=== PATIENT | male | born 1955 | race Caucasian/White ===

== ENCOUNTER 2023-04-06 06:04 | Observation (INO) ==
[2023-04-06] MEDS ORDERED: IOPAMIDOL 100 ML BOTTLE IV ONE (06:05)
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
--- NOTE | 2023-04-06 06:40 | Cat Scan Report ---
INDICATION: Neuro Deficit/acute stroke. History of multiple sclerosis COMPARISON: Previous MRI scans dated 05/16/2021, 01/06/2020, 01/10/2018. Previous brain CT scan dated 03/13/2015 TECHNIQUE: Axial noncontrast-enhanced images through the brain. Sagittally and coronally reformatted images. FINDINGS: Cerebral hemispheres:Negative. No intra-axial abnormality. No intra-axial hematoma. No localized mass effect. There is cerebral atrophy with enlarged ventricles. Cyst is unchanged. Superficial subarachnoid spaces are mildly prominent No acute focal intra-axial abnormality. No localized mass effect. Brainstem and cerebellum:There is cerebellar atrophy. No intra-axial abnormality. Brainstem is negative Extra-axial:No acute hemorrhage. No subdural or epidural hematoma. No subarachnoid hemorrhage. Basilar cisterns are normal Calvarial:No calvarial fracture. No lytic lesion Temporal bones are negative. No destructive lesions Soft tissue, orbits, sinuses:Orbits and visualized facial soft tissues and paranasal sinuses are negative IMPRESSION: 1. Cerebral and cerebellar atrophy 2. No acute abnormality. No intracranial hemorrhage The exam was performed using radiation dose optimization techniques including, but not limited to, automated exposure control, adjustment of the mA and/or kV according to patient size and use of iterative reconstruction technique. Interpreted and Authenticated by: Isaias Mohamud 04/06/23
[2023-04-06 06:47] LABS: POC INR 1.2 (0.8-1.2); POC Pro Time 13.9 (11.9-14.5)
[2023-04-06 06:50] LABS: POC Calcium, Ionized 1.01 (1.16-1.32); POC Creatinine 1.1 (0.6-1.2); POC Potassium 3.4 (3.3-5.1)
--- NOTE | 2023-04-06 07:31 | Cat Scan Report ---
INDICATION: FALL COMPARISON: None. TECHNIQUE: Axial thin section images through the cervical spine. Sagittally and coronally reformatted images. The exam was performed using radiation dose optimization techniques including, but not limited to, automated exposure control, adjustment of the mA and/or kV according to patient size and use of iterative reconstruction technique. FINDINGS: There is ossification of the posterior longitudinal ligament (OPLL). This is segmental at the C2-3 and C4-5 levels. No pathologic fracture. No pseudoarthrosis. No significant spinal canal stenosis Vertebral bodies, spinous processes:No vertebral body or spinous process fracture. No acute abnormality. Alignment is anatomic without anterolisthesis Normal odontoid process. No fracture. Occipital condyles and C1 are negative. No atlantoaxial subluxation. Facets:No perched or locked facet. No facet complex fracture. Disc spaces:Ossification of the posterior longitudinal ligament at the C2-3 level and C4-5 level. Appearance is consistent with segmental OPLL. There is severe degenerative disc disease at C4-5. Mild degenerative disc narrowing at C5-6 Temporal bones:Negative. No basilar skull fracture Cervical soft tissues:Negative. No prevertebral soft tissue swelling. No focal soft tissue mass or acute abnormality Lung apices:No pneumothorax. No pulmonary contusion. IMPRESSION: 1. Segmental ossification of the posterior longitudinal ligament (OPLL) 2. Degenerative disc disease at C4-5 and C5-6 3. No acute abnormality Interpreted and Authenticated by: Isaias Mohamud 04/06/23
[2023-04-06 07:52] LABS: Basophils # (Auto) 0.06 K/mcL (0.00-0.30); Basophils % (Auto) 0.6 % (0.0-2.0); Eosinophils # (Auto) 0.01 K/mcL (0.00-0.70); Eosinophils % (Auto) 0.1 % (0.0-7.0); Hematocrit 44.1 % (40.1-51.0); Hemoglobin 15.1 g/dL (13.7-17.5); Lymphocytes % (Auto) 4.6 % (15.5-49.0); Mean Cell Volume 83.1 fL (80.0-100.0); Mean Corpuscular HGB Conc 34.2 g/dL (31.0-36.0); Mean Platelet Volume 10.3 fL (8.8-12.5); Monocytes # (Auto) 0.46 K/mcL (0.10-0.90); Monocytes % (Auto) 4.2 % (1.0-12.0); Neutrophils % (Auto) 89.9 % (38.0-78.0); Platelet Count 161 K/mcL (140-440); RBC 5.31 M/mcL (4.63-6.08); Red Cell Distribution Width 13.4 % (11.5-14.5); WBC 10.9 K/mcL (4.5-11.0)
[2023-04-06 08:09] LABS: ALT/SGPT 29 U/L (<40); AST/SGOT 22 U/L (<40); Albumin 4.2 gm/dL (3.2-5.2); Albumin/Globulin Ratio 1.6 (1.0-2.3); Alkaline Phosphatase 66 U/L (39-117); Bilirubin,Direct < 0.2 mg/dL (0-0.3); Bilirubin,Total 0.9 mg/dL (0.1-1.0); Blood Urea Nitrogen 15 mg/dL (8-23); Calcium 9.1 mg/dL (8.6-10.4); Carbon Dioxide 20 mmol/L (22-30); Chloride 101 mmol/L (96-108); Globulin 2.7 gm/dL (2.2-3.7); Glomerular Filtration Rate 70; Glucose 124 mg/dL (70-105)
--- NOTE | 2023-04-06 08:35 | Emergency Department Note ---
Course Course Course Narrative: Patient is a 67-year-old male with a history significant for multiple sclerosis who presents to the emergency department due to a fall. Patient was signed out to me by Dr. Shelton. Briefly, it was reported that there was some concern for possibility of stroke by EMS, but Dr. Shelton reports that patient is at his neurologic baseline. Labs and images were pending at the time of signout. I spoke to the patient and significant other in the room. They endorse a fall around 230 to 3 AM. He attempted to get up, but was unable to. He was on the ground until transfer to the emergency department by EMS. She states that EMS was concerned about stroke because he was listing to the right. She does endorse increased weakness throughout compared to normal. She states that patient does not usually require oxygen but is requiring oxygen now. She also endorses recent vomiting. They deny any other new or worsened symptoms. Vital Signs Vital signs: Vital Signs Temperature 97.4 F 04/06/23 06:09 Pulse Rate 127 H 04/06/23 06:09 Respiratory Rate 24 H 04/06/23 06:09 Blood Pressure 111/57 04/06/23 06:09 Pulse Oximetry (%) 88 L 04/06/23 06:09 Oxygen Delivery Method Room Air 04/06/23 06:09 Temperature 98.0 F 04/06/23 14:56 Pulse Rate 88 04/06/23 15:12 Respiratory Rate 20 04/06/23 15:12 Blood Pressure 109/64 04/06/23 15:12 Pulse Oximetry (%) 93 04/06/23 15:12 Oxygen Delivery Method Room Air 04/06/23 15:12 Oxygen Flow Rate (L/min) 3 04/06/23 08:34 [facility] Narrative Medical decision making narrative: Narrative: Patient is a 67-year-old male who presents to the emergency department due to fall and weakness. Differential diagnoses include pneumonia, heart failure, pulmonary embolus, UTI, and other infection that is not apparent at this time. Patient's chest x-ray demonstrates concern for pneumonia. Patient has received ceftriaxone and azithromycin. D-dimer is elevated. CT scan does not demonstrate findings consistent with pneumonia or pulmonary embolus. There are interstitial findings that could be consistent with CHF. Patient does have a mildly elevated proBNP. Patient's symptoms improved significantly with fluids prior to results of this BNP. I did speak with Dr. Bosch who asked that we give Lasix and try to wean oxygen prior to admission. Patient received Lasix, and stated that he did not feel any improvement in symptoms with Lasix, but did feel improvement with the fluids given via IV. We were able to wean oxygen, but patient continues to have saturations in the low 90s. We did attempt to walk patient, but he was unable to get up at all. I did speak with Dr. Bosch again, and he did agree with admitting patient. Lab Data 04/06/23 06:30 04/06/23 06:42 Labs: Lab Results 04/06/23 04/06/23 04/06/23 Range/Units 06:30 06:30 06:34 WBC 10.9 (4.5-11.0) K/mcL RBC 5.31 (4.63-6.08) M/mcL Hgb 15.1 (13.7-17.5) g/dL Hct 44.1 (40.1-51.0) % POC Hct 46.0 (41-55) MCV 83.1 (80.0-100.0) fL MCH 28.4 (26.0-34.0) pg MCHC 34.2 (31.0-36.0) g/dL RDW 13.4 (11.5-14.5) % Plt Count 161 (140-440) K/mcL MPV 10.3 (8.8-12.5) fL Immature Gran % (Auto) 0.6 H (0.0-0.5) % Neut % (Auto) 89.9 H (38.0-78.0) % Lymph % (Auto) 4.6 L (15.5-49.0) % Brooks % (Auto) 4.2 (1.0-12.0) % Eos % (Auto) 0.1 (0.0-7.0) % Baso % (Auto) 0.6 (0.0-2.0) % Lymph # (Auto) 0.50 L (1.50-4.80) K/mcL Brooks # (Auto) 0.46 (0.10-0.90) K/mcL Eos # (Auto) 0.01 (0.00-0.70) K/mcL Baso # (Auto) 0.06 (0.00-0.30) K/mcL Immature Gran # 0.06 H (0.00-0.05) K/mcl Absolute Neutrophils 9.81 H (1.80-8.00) K/mcL POC PT (11.9-14.5) POC INR (0.8-1.2) APTT 30.7 (20.0-37.0) sec D-Dimer (0.27-0.50) ug/mL POC VBG pH (7.32-7.42) POC VBG pCO2 at Temp (41-51) POC VBG pO2 (25-40) POC VBG HCO3 (24-28) POC VBG Total CO2 (25-29) POC Venous O2 Sat (40-70) POC VBG Base Excess (-2-2) VBG Lactic Acid (0.5-2) POC Sodium 140 (133-145) Sodium (133-145) mmol/L POC Potassium 3.4 (3.3-5.1) Potassium (3.3-5.1) mmol/L POC Chloride 103 (96-108) Chloride (96-108) mmol/L Carbon Dioxide (22-30) mmol/L POC Total CO2 23.0 (22-30) Anion Gap (8.0-16.0) POC Anion Gap 18.0 H (8.0-16.0) POC BUN 20 (6-20) BUN (8-23) mg/dL Creatinine (0.7-1.2) mg/dL POC Creatinine 1.1 (0.6-1.2) GFR Calculation Glucose (70-105) mg/dL POC Glucose 132 H (70-105) Calcium (8.6-10.4) mg/dL POC WB Ioniz Calcium 1.01 L (1.16-1.32) Total Bilirubin (0.1-1.0) mg/dL Direct Bilirubin (0-0.3) mg/dL AST (<40) U/L ALT (<40) U/L Alkaline Phosphatase (39-117) U/L Total Creatine Kinase (24-195) U/L NT-Pro-B Natriuret Pep (<125.0) pg/mL Total Protein (5.9-8.4) gm/dL Albumin (3.2-5.2) gm/dL Globulin (2.2-3.7) gm/dL Albumin/Globulin Ratio (1.0-2.3) Procalcitonin (<0.10) ng/mL Urine Color Urine Appearance (Clear) Urine pH (5.0-9.0) Ur Specific [place] (1.000-1.035) Urine Protein (Negative) mg/dL Urine Glucose (UA) (Negative) mg/dL Urine Ketones (Negative) mg/dL Urine Occult Blood (Negative) mg/dL Urine Nitrate (Negative) Urine Bilirubin (Negative) mg/dL Urine Urobilinogen mg/dL Ur Leukocyte Esterase (Negative) /uL Ur Culture Indicated? POC Troponin I (0.00-0.08) 04/06/23 04/06/23 04/06/23 Range/Units 06:35 06:38 06:42 WBC (4.5-11.0) K/mcL RBC (4.63-6.08) M/mcL Hgb (13.7-17.5) g/dL Hct (40.1-51.0) % POC Hct (41-55) MCV (80.0-100.0) fL MCH (26.0-34.0) pg MCHC (31.0-36.0) g/dL RDW (11.5-14.5) % Plt Count (140-440) K/mcL MPV (8.8-12.5) fL Immature Gran % (Auto) (0.0-0.5) % Neut % (Auto) (38.0-78.0) % Lymph % (Auto) (15.5-49.0) % Brooks % (Auto) (1.0-12.0) % Eos % (Auto) (0.0-7.0) % Baso % (Auto) (0.0-2.0) % Lymph # (Auto) (1.50-4.80) K/mcL Brooks # (Auto) (0.10-0.90) K/mcL Eos # (Auto) (0.00-0.70) K/mcL Baso # (Auto) (0.00-0.30) K/mcL Immature Gran # (0.00-0.05) K/mcl Absolute Neutrophils (1.80-8.00) K/mcL POC PT (11.9-14.5) POC INR (0.8-1.2) APTT (20.0-37.0) sec D-Dimer (0.27-0.50) ug/mL POC VBG pH 7.46 H (7.32-7.42) POC VBG pCO2 at Temp 33.4 L (41-51) POC VBG pO2 55 H (25-40) POC VBG HCO3 23.6 L (24-28) POC VBG Total CO2 25.0 (25-29) POC Venous O2 Sat 90.0 H (40-70) POC VBG Base Excess 0 (-2-2) VBG Lactic Acid 3.1 H (0.5-2) POC Sodium (133-145) Sodium 137 (133-145) mmol/L POC Potassium (3.3-5.1) Potassium 3.6 (3.3-5.1) mmol/L POC Chloride (96-108) Chloride 101 (96-108) mmol/L Carbon Dioxide 20 L (22-30) mmol/L POC Total CO2 (22-30) Anion Gap 16.0 (8.0-16.0) POC Anion Gap (8.0-16.0) POC BUN (6-20) BUN 15 (8-23) mg/dL Creatinine 1.1 (0.7-1.2) mg/dL POC Creatinine (0.6-1.2) GFR Calculation 70 Glucose 124 H (70-105) mg/dL POC Glucose (70-105) Calcium 9.1 (8.6-10.4) mg/dL POC WB Ioniz Calcium (1.16-1.32) Total Bilirubin 0.9 (0.1-1.0) mg/dL Direct Bilirubin < 0.2 (0-0.3) mg/dL AST 22 (<40) U/L ALT 29 (<40) U/L Alkaline Phosphatase 66 (39-117) U/L Total Creatine Kinase (24-195) U/L NT-Pro-B Natriuret Pep (<125.0) pg/mL Total Protein 6.9 (5.9-8.4) gm/dL Albumin 4.2 (3.2-5.2) gm/dL Globulin 2.7 (2.2-3.7) gm/dL Albumin/Globulin Ratio 1.6 (1.0-2.3) Procalcitonin (<0.10) ng/mL Urine Color Urine Appearance (Clear) Urine pH (5.0-9.0) Ur Specific [place] (1.000-1.035) Urine Protein (Negative) mg/dL Urine Glucose (UA) (Negative) mg/dL Urine Ketones (Negative) mg/dL Urine Occult Blood (Negative) mg/dL Urine Nitrate (Negative) Urine Bilirubin (Negative) mg/dL Urine Urobilinogen mg/dL Ur Leukocyte Esterase (Negative) /uL Ur Culture Indicated? POC Troponin I < 0.02 (0.00-0.08) 04/06/23 04/06/23 04/06/23 Range/Units 06:42 08:50 08:51 WBC (4.5-11.0) K/mcL RBC (4.63-6.08) M/mcL Hgb (13.7-17.5) g/dL Hct (40.1-51.0) % POC Hct (41-55) MCV (80.0-100.0) fL MCH (26.0-34.0) pg MCHC (31.0-36.0) g/dL RDW (11.5-14.5) % Plt Count (140-440) K/mcL MPV (8.8-12.5) fL Immature Gran % (Auto) (0.0-0.5) % Neut % (Auto) (38.0-78.0) % Lymph % (Auto) (15.5-49.0) % Brooks % (Auto) (1.0-12.0) % Eos % (Auto) (0.0-7.0) % Baso % (Auto) (0.0-2.0) % Lymph # (Auto) (1.50-4.80) K/mcL Brooks # (Auto) (0.10-0.90) K/mcL Eos # (Auto) (0.00-0.70) K/mcL Baso # (Auto) (0.00-0.30) K/mcL Immature Gran # (0.00-0.05) K/mcl Absolute Neutrophils (1.80-8.00) K/mcL POC PT 13.9 (11.9-14.5) POC INR 1.2 (0.8-1.2) APTT (20.0-37.0) sec D-Dimer 1.77 H (0.27-0.50) ug/mL POC VBG pH (7.32-7.42) POC VBG pCO2 at Temp (41-51) POC VBG pO2 (25-40) POC VBG HCO3 (24-28) POC VBG Total CO2 (25-29) POC Venous O2 Sat (40-70) POC VBG Base Excess (-2-2) VBG Lactic Acid (0.5-2) POC Sodium (133-145) Sodium (133-145) mmol/L POC Potassium (3.3-5.1) Potassium (3.3-5.1) mmol/L POC Chloride (96-108) Chloride (96-108) mmol/L Carbon Dioxide (22-30) mmol/L POC Total CO2 (22-30) Anion Gap (8.0-16.0) POC Anion Gap (8.0-16.0) POC BUN (6-20) BUN (8-23) mg/dL Creatinine (0.7-1.2) mg/dL POC Creatinine (0.6-1.2) GFR Calculation Glucose (70-105) mg/dL POC Glucose (70-105) Calcium (8.6-10.4) mg/dL POC WB Ioniz Calcium (1.16-1.32) Total Bilirubin (0.1-1.0) mg/dL Direct Bilirubin (0-0.3) mg/dL AST (<40) U/L ALT (<40) U/L Alkaline Phosphatase (39-117) U/L Total Creatine Kinase 646 H (24-195) U/L NT-Pro-B Natriuret Pep 419.6 H (<125.0) pg/mL Total Protein (5.9-8.4) gm/dL Albumin (3.2-5.2) gm/dL Globulin (2.2-3.7) gm/dL Albumin/Globulin Ratio (1.0-2.3) Procalcitonin (<0.10) ng/mL Urine Color Urine Appearance (Clear) Urine pH (5.0-9.0) Ur Specific [place] (1.000-1.035) Urine Protein (Negative) mg/dL Urine Glucose (UA) (Negative) mg/dL Urine Ketones (Negative) mg/dL Urine Occult Blood (Negative) mg/dL Urine Nitrate (Negative) Urine Bilirubin (Negative) mg/dL Urine Urobilinogen mg/dL Ur Leukocyte Esterase (Negative) /uL Ur Culture Indicated? POC Troponin I (0.00-0.08) 04/06/23 04/06/23 04/06/23 Range/Units 08:52 08:52 09:51 WBC (4.5-11.0) K/mcL RBC (4.63-6.08) M/mcL Hgb (13.7-17.5) g/dL Hct (40.1-51.0) % POC Hct (41-55) MCV (80.0-100.0) fL MCH (26.0-34.0) pg MCHC (31.0-36.0) g/dL RDW (11.5-14.5) % Plt Count (140-440) K/mcL MPV (8.8-12.5) fL Immature Gran % (Auto) (0.0-0.5) % Neut % (Auto) (38.0-78.0) % Lymph % (Auto) (15.5-49.0) % Brooks % (Auto) (1.0-12.0) % Eos % (Auto) (0.0-7.0) % Baso % (Auto) (0.0-2.0) % Lymph # (Auto) (1.50-4.80) K/mcL Brooks # (Auto) (0.10-0.90) K/mcL Eos # (Auto) (0.00-0.70) K/mcL Baso # (Auto) (0.00-0.30) K/mcL Immature Gran # (0.00-0.05) K/mcl Absolute Neutrophils (1.80-8.00) K/mcL POC PT (11.9-14.5) POC INR (0.8-1.2) APTT (20.0-37.0) sec D-Dimer (0.27-0.50) ug/mL POC VBG pH 7.40 (7.32-7.42) POC VBG pCO2 at Temp 38.4 L (41-51) POC VBG pO2 44 H (25-40) POC VBG HCO3 24.0 (24-28) POC VBG Total CO2 25.0 (25-29) POC Venous O2 Sat 80.0 H (40-70) POC VBG Base Excess -1.0 (-2-2) VBG Lactic Acid 2.1 H 2.1 H (0.5-2) POC Sodium (133-145) Sodium (133-145) mmol/L POC Potassium (3.3-5.1) Potassium (3.3-5.1) mmol/L POC Chloride (96-108) Chloride (96-108) mmol/L Carbon Dioxide (22-30) mmol/L POC Total CO2 (22-30) Anion Gap (8.0-16.0) POC Anion Gap (8.0-16.0) POC BUN (6-20) BUN (8-23) mg/dL Creatinine (0.7-1.2) mg/dL POC Creatinine (0.6-1.2) GFR Calculation Glucose (70-105) mg/dL POC Glucose (70-105) Calcium (8.6-10.4) mg/dL POC WB Ioniz Calcium (1.16-1.32) Total Bilirubin (0.1-1.0) mg/dL Direct Bilirubin (0-0.3) mg/dL AST (<40) U/L ALT (<40) U/L Alkaline Phosphatase (39-117) U/L Total Creatine Kinase (24-195) U/L NT-Pro-B Natriuret Pep (<125.0) pg/mL Total Protein (5.9-8.4) gm/dL Albumin (3.2-5.2) gm/dL Globulin (2.2-3.7) gm/dL Albumin/Globulin Ratio (1.0-2.3) Procalcitonin 0.87 H (<0.10) ng/mL Urine Color Urine Appearance (Clear) Urine pH (5.0-9.0) Ur Specific [place] (1.000-1.035) Urine Protein (Negative) mg/dL Urine Glucose (UA) (Negative) mg/dL Urine Ketones (Negative) mg/dL Urine Occult Blood (Negative) mg/dL Urine Nitrate (Negative) Urine Bilirubin (Negative) mg/dL Urine Urobilinogen mg/dL Ur Leukocyte Esterase (Negative) /uL Ur Culture Indicated? POC Troponin I (0.00-0.08) 04/06/23 04/06/23 Range/Units 12:04 13:00 WBC (4.5-11.0) K/mcL RBC (4.63-6.08) M/mcL Hgb (13.7-17.5) g/dL Hct (40.1-51.0) % POC Hct (41-55) MCV (80.0-100.0) fL MCH (26.0-34.0) pg MCHC (31.0-36.0) g/dL RDW (11.5-14.5) % Plt Count (140-440) K/mcL MPV (8.8-12.5) fL Immature Gran % (Auto) (0.0-0.5) % Neut % (Auto) (38.0-78.0) % Lymph % (Auto) (15.5-49.0) % Brooks % (Auto) (1.0-12.0) % Eos % (Auto) (0.0-7.0) % Baso % (Auto) (0.0-2.0) % Lymph # (Auto) (1.50-4.80) K/mcL Brooks # (Auto) (0.10-0.90) K/mcL Eos # (Auto) (0.00-0.70) K/mcL Baso # (Auto) (0.00-0.30) K/mcL Immature Gran # (0.00-0.05) K/mcl Absolute Neutrophils (1.80-8.00) K/mcL POC PT (11.9-14.5) POC INR (0.8-1.2) APTT (20.0-37.0) sec D-Dimer (0.27-0.50) ug/mL POC VBG pH (7.32-7.42) POC VBG pCO2 at Temp (41-51) POC VBG pO2 (25-40) POC VBG HCO3 (24-28) POC VBG Total CO2 (25-29) POC Venous O2 Sat (40-70) POC VBG Base Excess (-2-2) VBG Lactic Acid 2.1 H (0.5-2) POC Sodium (133-145) Sodium (133-145) mmol/L POC Potassium (3.3-5.1) Potassium (3.3-5.1) mmol/L POC Chloride (96-108) Chloride (96-108) mmol/L Carbon Dioxide (22-30) mmol/L POC Total CO2 (22-30) Anion Gap (8.0-16.0) POC Anion Gap (8.0-16.0) POC BUN (6-20) BUN (8-23) mg/dL Creatinine (0.7-1.2) mg/dL POC Creatinine (0.6-1.2) GFR Calculation Glucose (70-105) mg/dL POC Glucose (70-105) Calcium (8.6-10.4) mg/dL POC WB Ioniz Calcium (1.16-1.32) Total Bilirubin (0.1-1.0) mg/dL Direct Bilirubin (0-0.3) mg/dL AST (<40) U/L ALT (<40) U/L Alkaline Phosphatase (39-117) U/L Total Creatine Kinase (24-195) U/L NT-Pro-B Natriuret Pep (<125.0) pg/mL Total Protein (5.9-8.4) gm/dL Albumin (3.2-5.2) gm/dL Globulin (2.2-3.7) gm/dL Albumin/Globulin Ratio (1.0-2.3) Procalcitonin (<0.10) ng/mL Urine Color Yellow Urine Appearance Clear (Clear) Urine pH 5.0 (5.0-9.0) Ur Specific [place] 1.028 (1.000-1.035) Urine Protein Negative (Negative) mg/dL Urine Glucose (UA) Negative (Negative) mg/dL Urine Ketones Negative (Negative) mg/dL Urine Occult Blood Negative (Negative) mg/dL Urine Nitrate Negative (Negative) Urine Bilirubin Negative (Negative) mg/dL Urine Urobilinogen Negative mg/dL Ur Leukocyte Esterase Negative (Negative) /uL Ur Culture Indicated? No POC Troponin I (0.00-0.08) Discharge Plan Patient/Caregiver Discharge Instructions Pt seen by ACCOUNT AUDITOR/PA only: No Clinical Impression: Fall from ground level, Multiple sclerosis Patient Disposition: Xfer As Inpt ([facility]) Discharge Date/Time: 04/06/23 15:15
--- NOTE | 2023-04-06 08:39 | XRay Report ---
INDICATION: SOB, tachypnea TECHNIQUE: AP portable upright chest x-ray COMPARISON: None FINDINGS: Lungs:Bilateral, bibasilar pulmonary parenchymal infiltrates consistent with pneumonia. Follow-up PA and lateral chest x-ray recommended Heart, vascular:No significant cardiomegaly. Pulmonary vascularity is normal. No pulmonary edema or pulmonary congestion Mediastinum, marcus:No mediastinal widening. No hilar mass Pleura:No pleural fluid. No pleural-based mass or calcification Skeletal:Negative. IMPRESSION: Bibasilar infiltrates consistent with pneumonia Interpreted and Authenticated by: Isaias Mohamud 04/06/23
[2023-04-06] MEDS ORDERED: AZITHROMYCIN 500 MG in DEXTROSE 5% IN WATER 250 ML IV ONE (08:51)
[2023-04-06] MEDS ORDERED: cefTRIAXone 2 GM in DEXTROSE 5% IN WATER 50 ML IV ONE (08:51)
[2023-04-06 09:43] LABS: Creatine Kinase 646 U/L (24-195); proBNP 419.6 pg/mL (<125.0)
[2023-04-06] MEDS ORDERED: 0.9 % SODIUM CHLORIDE 500 ML IV ONE (09:45)
--- NOTE | 2023-04-06 11:19 | Cat Scan Report ---
INDICATION: SOB, hypoxia, elevated D dimer COMPARISON: Previous chest x-ray dated 04/06/2023 TECHNIQUE: Axial images obtained through the chest. 80ml Isovue 370 injected intravenously, and scanning was performed during pulmonary arterial phase. Sagittally and coronally reformatted images were obtained. MIP reformatted images. FINDINGS: Lungs:No parenchymal consolidation. There is bronchial wall thickening and there is reticular abnormality. Findings may be due to interstitial edema. Bronchitis is possible. There is a 9 mm noncalcified right lower lobe nodule, image 85. Fleischner Society recommendations: [address] follow-up Mediastinum, vascular:Main pulmonary artery, right pulmonary artery, left pulmonary artery are negative. No intraluminal filling defects. No lobar, segmental, or subsegmental emboli. Thoracic aorta is negative. No aneurysmal dilatation No pathologic mediastinal or hilar adenopathy Heart:No cardiomegaly. No pericardial effusion. No significant coronary artery calcification Pleura:No significant pleural effusion. No pleural mass or calcification Axilla, supraclavicular regions, chest wall:No pathologic axillary or supraclavicular adenopathy. Musculoskeletal:Negative thoracic spine. No compression fracture. No lytic lesion. No rib or sternal lesions Upper Abdomen:There is splenomegaly. Spleen measures 16 cm x 13 cm. There are calcified gallstones. No evidence for cholecystitis IMPRESSION: 1. Negative pulmonary CTA. No pulmonary embolism 2. 9 mm noncalcified nodule in the right lower lobe. Recommend [address] follow-up 3. Mild reticular abnormality. There is thickening of the bronchial cotter. Interstitial edema or bronchitis or possible 4. Cholelithiasis 5. Mild splenomegaly The exam was performed using radiation dose optimization techniques including, but not limited to, automated exposure control, adjustment of the mA and/or kV according to patient size and use of iterative reconstruction technique. Interpreted and Authenticated by: Isaias Mohamud 04/06/23
[2023-04-06] MEDS ORDERED: FUROSEMIDE 40 MG/4 ML VIAL IV STA (11:45)
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
[2023-04-06] MEDS ORDERED: ACETAMINOPHEN 325 MG TABLET PO ONE (12:51)
[2023-04-06 13:36] LABS: Appearance,Urine CLEAR (Clear); Bilirubin,Urine Negative (Negative); Color,Urine YELLOW; Culture Indicated,Urine No; Glucose,Urine (UA) Negative (Negative); Ketones,Urine Negative (Negative); Leukocyte Esterase,Urine Negative /uL (Negative); Nitrate,Urine Negative (Negative); Protein,Urine Negative (Negative); Specific Gravity,Urine 1.028 (1.000-1.035); Urine Blood Negative (Negative); Urobilinogen,Urine Negative
[2023-04-06] MEDS ORDERED: NAPROXEN 250 MG TABLET PO PRN (14:32)
[2023-04-06] MEDS ORDERED: MAGNESIUM HYDROXIDE 30 ML ORAL.SUSP PO PRN (16:47)
[2023-04-06] MEDS ORDERED: BISACODYL 10 MG SUPP.RECT PR PRN (16:47)
[2023-04-06] MEDS ORDERED: ONDANSETRON 4 MG/2 ML VIAL IV PRN (16:47)
[2023-04-06] MEDS: 0.9 % SODIUM CHLORIDE 10 ML SYRINGE IV SCH ×2 (16:48→20:56)
[2023-04-06] MEDS: IPRATROPIUM/ALBUTEROL 3 ML AMPUL.NEB NEB SCH ×3 (17:06→21:10)
[2023-04-06] MEDS: ACETAMINOPHEN 325 MG TABLET PO PRN ×2 (17:35→23:48)
[2023-04-07] MEDS: 0.9 % SODIUM CHLORIDE 10 ML SYRINGE IV SCH ×3 (05:35→20:49)
[2023-04-07] MEDS: ACETAMINOPHEN 325 MG TABLET PO PRN (05:54)
[2023-04-07 06:33] LABS: Basophils # (Auto) 0.06 K/mcL (0.00-0.30); Basophils % (Auto) 0.5 % (0.0-2.0); Eosinophils # (Auto) 0.02 K/mcL (0.00-0.70); Eosinophils % (Auto) 0.2 % (0.0-7.0); Hematocrit 41.8 % (40.1-51.0); Lymphocytes # (Auto) 0.95 K/mcL (1.50-4.80); Lymphocytes % (Auto) 8.7 % (15.5-49.0); Mean Corpuscular HGB Conc 33.5 g/dL (31.0-36.0); Mean Platelet Volume 10.1 fL (8.8-12.5); Monocytes # (Auto) 0.83 K/mcL (0.10-0.90); Monocytes % (Auto) 7.6 % (1.0-12.0); Neutrophils % (Auto) 82.5 % (38.0-78.0); Platelet Count 136 K/mcL (140-440); RBC 4.92 M/mcL (4.63-6.08); Red Cell Distribution Width 13.8 % (11.5-14.5)
[2023-04-07 06:58] LABS: ALT/SGPT 30 U/L (<40); AST/SGOT 59 U/L (<40); Albumin 3.3 gm/dL (3.2-5.2); Albumin/Globulin Ratio 1.1 (1.0-2.3); Alkaline Phosphatase 63 U/L (39-117); Bilirubin,Total 1.1 mg/dL (0.1-1.0); Blood Urea Nitrogen 18 mg/dL (8-23); Calcium 8.7 mg/dL (8.6-10.4); Carbon Dioxide 25 mmol/L (22-30); Chloride 102 mmol/L (96-108); Globulin 3.1 gm/dL (2.2-3.7); Glomerular Filtration Rate 70; Glucose 110 mg/dL (70-105)
[2023-04-07] MEDS ORDERED: FUROSEMIDE 20 MG/2 ML VIAL IV ONE ×2 (08:50→13:26)
[2023-04-07] MEDS: IPRATROPIUM/ALBUTEROL 3 ML AMPUL.NEB NEB SCH ×4 (09:16→21:33)
[2023-04-07] MEDS: Teriflunomide 14 mg tablet PO SCH (09:42)
[2023-04-07] MEDS: cefTRIAXone 2 GM in DEXTROSE 5% IN WATER 50 ML IV SCH (09:59)
--- NOTE | 2023-04-07 13:23 | Internal Med Progress Note ---
SUBJECTIVE Subjective Patient information: Note initiated : 04/07/23 at 1:20 pm Service Date, if different from initiated Date: [] Patient: Larry Steen a 67 y/o M admitted on 04/06/23 for Respiratory failure. Chief Complaint: [] Additional PMFSH (Level 3 Only): Mr. Steen is a 67 year old male with history of MS, recurrent falls, possible CHF on Lasix, morbid obesity BMI 40, HLD, GERD, chronic back, 40 years of smoking history fell out of bed and was unable to get up for 3 hours per this morning. Patient denied any loss of consciousness, head injury. He has chronic back pain which is unchanged. reports that patient was on Lasix fo r peripheral edema and shortness of breath for over 3 years, around 3 months ago he decided to stop taking it since that was making him urinate often. reports he has been getting weaker in the past few days. She feels that patient current MS regimen is not very effective. Patient follows up with neurologist in [place]. On presentation patient had tachypnea with respiratory rate 24, tachycardia 127, he was hypoxic with sat 88% on room air and required 2 L nasal cannula oxygen. CBC showed WBC 10.9, Hemoglobin 15. VBG with pH 7.46, PCO2 33, PO2 55, HCO3 23. Lactic acid was elevated at 3.1 and trending down. Potassium was low at 3.4. Creatinine 1.1. Glucose 124. Creatinine kinase elevated at 646, proBNP 419, troponin negative, procalcitonin 0.87. CT head and neck showed no acute finding. EKG showed tachycardia with heart rate [address] depression. There is no old EKG to compare. CTA chest showed no PE, bronchial wall thickening possible bronchitis, interstitial edema. Admission was requested. 04/07. Patient was started on IV Lasix 40 mg daily. He also received IV ceftriaxone. Patient reported he is feeling significantly improved. No fever or chills. Breathing is better. He worked with physical and was able to ambulate with walker however is concerned that they have 2 steps to the house and that patient is not back to baseline. Echocardiogram has been completed and report is pending Review of system Patient reported strength is improving, breathing has also improved no cough or fever, no sputum production. No dysuria or hematuria, no nausea or vomiting, no blurred vision or headache. No excessive thirst or polyuria. Denies any depr ession Physical examination General: Alert and awake, no acute distress Normocephalic, atraumatic, no raccoon's eyes, EOMI Skin has no laceration abrasions or hematoma Abdomen is soft and nontender S1 and S2, regular rhythm, tachycardia with heart rate 98 bpm, no murmurs heard, trace peripheral edema, chronic venous stasis changes in lower extremities Chest is clear bilaterally Alert, oriented, cranial nerves II to XII grossly intact, no focal weakness Appropriate mood Assessment and plan Suspect CHF exacerbation. Patient stopped taking his Lasix 3 months ago. Now presenting with weakness, shortness of breath, CT interstitial edema. Elevated BNP. IV Lasix 40 mg daily, monitor weight daily, input and output, echocardiogram pending. Noncompliance with medication. Patient counseled on compliance with prescribed medication Acute hypoxic respiratory failure. Likely secondary to CHF and fall. Incentive spirometry. Patient received Lasix in ER and breathing improved Multiple sclerosis. Patient follows up with neurologist at [facility]. He reports compliance with his po Aubagio. He is not on any infusion. feels current MS regimen is not very effective Recurrent fall. Patient with poor mobility at baseline secondary to MS. He has history of recurrent falls. CT head and neck and CTA chest showed no fracture. Morbid obesity, BMI over 40. Patient reports he lost some weight with healthy lifestyle changes. He was offered praise and was encouraged to continue healthy lifestyle changes History of tobacco use. Patient smoked 2 packs a day for over 40 years and quit 10 years ago. He likely has underlying COPD but no formal diagnosis yet. We will give him DuoNebs. Physical deconditioning/generalized weakness. Improving. Continue PT and OT HLD, stable GERD, stable Cholelithiasis. Incidental finding on CT scan. No Brenda cystitis DVT prophylaxis. With SCDs Full code Total time taken 45 minutes Constitutional Vitals: Vital Signs Temp Pulse Resp BP Pulse Ox O2 Del Method O2 Flow Rate 99.1 F H 84 18 136/70 92 Room Air 3 04/07/23 03:50 04/07/23 08:15 04/07/23 08:15 04/07/23 03:50 04/07/23 08:15 04/07/23 08:15 04/06/23 08:34 Period Temp Pulse Resp BP Sys/Mccracken Pulse Ox O2 Del Method O2 Flow Rate Last 24 Hr 98.0 F-100.6 F 80-101 18-31 102-141/64-73 90-96 Room Air-Room Air Intake and Output 04/07/23 04/07/23 04/07/23 03:59 11:59 19:59 Intake Total 150 50 Output Total 1225 Balance -1075 50 Weight 136.168 kg Intake & Output: Intake & Output 04/07/23 04/07/23 04/07/23 03:59 11:59 19:59 Intake Total 150 50 Output Total 1225 Balance -1075 50 Weight 136.168 kg Intake: IV 50 Rocephin 2 gm In Dextrose 5% in 50 Water 50 ml @ 100 mls/hr IV Q24H [facility] Rx#:[id number] Oral 150 Output: Urine Catheter Amount 1225 Other: Urine Appearance Clear Uretheral (Hanks) Clear Urine Color Light Molly Dark Molly Uretheral (Hanks) Dark Molly OBJ DATA Labs 04/07/23 05:33 04/07/23 05:33 Labs: Abnormal Lab Results 04/07/23 04/07/23 04/06/23 05:33 05:33 12:04 Plt Count 136 L Immature Gran % (Auto) Neut % (Auto) 82.5 H Lymph % (Auto) 8.7 L Lymph # (Auto) 0.95 L Immature Gran # Absolute Neutrophils 9.05 H D-Dimer POC VBG pH POC VBG pCO2 at Temp POC VBG pO2 POC VBG HCO3 POC Venous O2 Sat VBG Lactic Acid 2.1 H Carbon Dioxide POC Anion Gap Glucose 110 H POC Glucose POC WB Ioniz Calcium Total Bilirubin 1.1 H AST 59 H Total Creatine Kinase NT-Pro-B Natriuret Pep Procalcitonin 04/06/23 04/06/23 04/06/23 09:51 08:52 08:52 Plt Count Immature Gran % (Auto) Neut % (Auto) Lymph % (Auto) Lymph # (Auto) Immature Gran # Absolute Neutrophils D-Dimer POC VBG pH POC VBG pCO2 at Temp 38.4 L POC VBG pO2 44 H POC VBG HCO3 POC Venous O2 Sat 80.0 H VBG Lactic Acid 2.1 H 2.1 H Carbon Dioxide POC Anion Gap Glucose POC Glucose POC WB Ioniz Calcium Total Bilirubin AST Total Creatine Kinase NT-Pro-B Natriuret Pep Procalcitonin 0.87 H 04/06/23 04/06/23 04/06/23 08:51 08:50 06:42 Plt Count Immature Gran % (Auto) Neut % (Auto) Lymph % (Auto) Lymph # (Auto) Immature Gran # Absolute Neutrophils D-Dimer 1.77 H POC VBG pH POC VBG pCO2 at Temp POC VBG pO2 POC VBG HCO3 POC Venous O2 Sat VBG Lactic Acid Carbon Dioxide 20 L POC Anion Gap Glucose 124 H POC Glucose POC WB Ioniz Calcium Total Bilirubin AST Total Creatine Kinase 646 H NT-Pro-B Natriuret Pep 419.6 H Procalcitonin 04/06/23 04/06/23 04/06/23 06:35 06:34 06:30 Plt Count Immature Gran % (Auto) 0.6 H Neut % (Auto) 89.9 H Lymph % (Auto) 4.6 L Lymph # (Auto) 0.50 L Immature Gran # 0.06 H Absolute Neutrophils 9.81 H D-Dimer POC VBG pH 7.46 H POC VBG pCO2 at Temp 33.4 L POC VBG pO2 55 H POC VBG HCO3 23.6 L POC Venous O2 Sat 90.0 H VBG Lactic Acid 3.1 H Carbon Dioxide POC Anion Gap 18.0 H Glucose POC Glucose 132 H POC WB Ioniz Calcium 1.01 L Total Bilirubin AST Total Creatine Kinase NT-Pro-B Natriuret Pep Procalcitonin Meds: Medications Acetaminophen (Acetaminophen 325 Mg Tablet) 650 mg PO Q6HP PRN; Protocol PRN Reason: Per Pain Protocol/Fever > 101 Last Admin: 04/07/23 05:54 Dose: 650 mg Albuterol/Ipratropium (Ipratropium/Albuterol 3 Ml Ampul.Neb) 3 ml NEB QID HELENE Last Admin: 04/07/23 09:16 Dose: 3 ml Bisacodyl (Bisacodyl 10 Mg Supp.Rect) 10 mg DE Q2-3DAYS PRN PRN Reason: Constipation Ceftriaxone Sodium 2 gm/ (Dextrose) 50 mls @ 100 mls/hr IV Q24H HELENE; Protocol Last Infusion: 04/07/23 10:36 Dose: Infused Magnesium Hydroxide (Magnesium Hydroxide 30 Ml Oral.Susp) 30 ml PO DAILYP PRN PRN Reason: Constipation Naproxen (Naproxen 250 Mg Tablet) 250 mg PO BIDP PRN PRN Reason: Headache Last Admin: 04/07/23 09:42 Dose: 250 mg Ondansetron HCl (Ondansetron 4 Mg/2 Ml Vial) 4 mg IV Q6HP PRN PRN Reason: Nausea And Vomiting Teriflunomide 14 Mg (Tablet) 1 dose PO DAILY HELENE Last Admin: 04/07/23 09:42 Dose: 1 dose Sodium Chloride (0.9 % Sodium Chloride 10 Ml Syringe) 10 ml IV Q8 [facility] Last Admin: 04/07/23 05:35 Dose: 10 ml A/P Time Spent With Patient Time: Total time spent is greater than 50% in coordination of care (as documented) at patient's floor/unit and/or counseling patient: QUALITY Stroke Symptom Onset Unknown: No VTE Deep Vein Thrombosis/Pulmonary Embolism Present on Admission: No
[2023-04-08] MEDS ORDERED: FUROSEMIDE 20 MG/2 ML VIAL IV ONE (06:41)
[2023-04-08 07:16] LABS: Basophils # (Auto) 0.07 K/mcL (0.00-0.30); Eosinophils # (Auto) 0.16 K/mcL (0.00-0.70); Eosinophils % (Auto) 2.3 % (0.0-7.0); Hematocrit 42.8 % (40.1-51.0); Hemoglobin 14.4 g/dL (13.7-17.5); Lymphocytes # (Auto) 1.04 K/mcL (1.50-4.80); Mean Cell Volume 84.8 fL (80.0-100.0); Mean Corpuscular HGB Conc 33.6 g/dL (31.0-36.0); Mean Platelet Volume 10.5 fL (8.8-12.5); Monocytes % (Auto) 8.6 % (1.0-12.0); Platelet Count 151 K/mcL (140-440); RBC 5.05 M/mcL (4.63-6.08); Red Cell Distribution Width 14.1 % (11.5-14.5); WBC 6.9 K/mcL (4.5-11.0)
[2023-04-08 07:36] LABS: proBNP 71.9 pg/mL (<125.0)
[2023-04-08 07:39] LABS: ALT/SGPT 29 U/L (<40); AST/SGOT 41 U/L (<40); Albumin 3.7 gm/dL (3.2-5.2); Albumin/Globulin Ratio 1.2 (1.0-2.3); Alkaline Phosphatase 63 U/L (39-117); Bilirubin,Total 0.8 mg/dL (0.1-1.0); Blood Urea Nitrogen 18 mg/dL (8-23); Calcium 8.8 mg/dL (8.6-10.4); Carbon Dioxide 25 mmol/L (22-30); Chloride 100 mmol/L (96-108); Globulin 3.1 gm/dL (2.2-3.7); Glomerular Filtration Rate 78; Glucose 109 mg/dL (70-105)
[2023-04-08] MEDS ORDERED: cefTRIAXone 2 GM VIAL ONE (07:56)
[2023-04-08] MEDS: Teriflunomide 14 mg tablet PO SCH (08:08)
[2023-04-08] MEDS: cefTRIAXone 2 GM in DEXTROSE 5% IN WATER 50 ML IV SCH (08:36)
[2023-04-08] MEDS: 0.9 % SODIUM CHLORIDE 10 ML SYRINGE IV SCH (08:40)
[2023-04-08] MEDS: IPRATROPIUM/ALBUTEROL 3 ML AMPUL.NEB NEB SCH (09:00)
--- NOTE | 2023-04-08 12:08 | Discharge Summary ---
Discharge Provider Provider IMPORTANT FOLLOW-UP INFORMATION FOR PCP: Patient information: Note initiated : 04/08/23 at 12:06 pm Service Date, if different from initiated Date: [] Patient: Larry Steen 67 y/o M admitted on 04/06/23 for Respiratory failure. Chief Complaint: [] Date of admission: 04/06/23 15:12 Discharge date: 04/08/23 Primary care physician: Paulo Zurita PA-C Consults: 04/06/23 Consult to Physician [CONS] Stat Comment: Consulting Provider: Micah Bosch Reason For Exam: Physician to Consult COURSE Hospital Course Hospital course: Mr. Steen is a 67 year old male with history of MS, recurrent falls, possible CHF on Lasix, morbid obesity BMI 40, HLD, GERD, chronic back, 40 years of smoking history fell out of bed and was unable to get up for 3 hours per this morning. Patient denied any loss of consciousness, head injury. He has chronic back pain which is unchanged. reports that patient was on Lasix for peripheral edema and shortness of breath for over 3 years, around 3 months ago he decided to stop taking it since that was making him urinate often. reports he has been getting weaker in the past few days. She feels that patient current MS regimen is not very effective. Patient follows up with neurologist in [place]. On presentation patient had tachypnea with respiratory rate 24, tachycardia 127, he was hypoxic with sat 88% on room air and required 2 L nasal cannula oxygen. CBC showed WBC 10.9, Hemoglobin 15. VBG with pH 7.46, PCO2 33, PO2 55, HCO3 23. Lactic acid was elevated at 3.1 and trending down. Potassium was low at 3.4. Creatinine 1.1. Glucose 124. Creatinine kinase elevated at 646, proBNP 419, troponin negative, procalcitonin 0.87. CT head and neck showed no acute finding. EKG showed tachycardia with heart rate [address] depression. There is no old EKG to compare. CTA chest showed no PE, bronchial wall thickening possible bronchitis, interstitial edema. Admission was requested. 04/07. Patient was started on IV Lasix 40 mg daily. He also received IV ceftriaxone. Patient reported he is feeling significantly improved. No fever or chills. Breathing is better. He worked with physical and was able to ambulate with walker however is concerned that they have 2 steps to the house and that patient is not back to baseline. Echocardiogram has been completed and rep ort is pending 04/08 patient ambulated with PT and did well. He feels back to baseline. He is on room air. He will be discharged home with outpatient PT OT. Echocardiogram result is still pending which will be followed up as an outpatient. Physical examination General: Alert and awake, no acute distress Normocephalic, atraumatic, no raccoon's eyes, EOMI Skin has no laceration abrasions or hematoma Abdomen is soft and nontender S1 and S2, regular rhythm, tachycardia with heart rate 98 bpm, no murmurs heard, trace peripheral edema, chronic venous stasis changes in lower extremities Chest is clear bilaterally Alert, oriented, cranial nerves II to XII grossly intact, no focal weakness Appropriate mood Discharge diagnoses Suspect CHF exacerbation. Patient stopped taking his Lasix 3 months ago. Now presenting with weakness, shortness of breath, CT interstitial edema. Elevated BNP. Received IV Lasix 40 mg daily and symptoms improved. Echocardiogram obtained and result is still pending which should be followed up as an outpatient. Patient discharged on Lasix 20 mg daily. Recommend repeating BMP in 1 week Noncompliance with medication. Patient counseled on compliance with prescribed medication Acute hypoxic respiratory failure. Likely secondary to CHF and fall. Incentive spirometry. Patient received Lasix in ER and hypoxia resolved. Satting well on room air Multiple sclerosis. Patient follows up with neurologist at [facility]. He reports compliance with his po [place]agio. He is not on any infusion. feels current MS regimen is not very effective. Referral for outpatient PT and OT completed Recurrent fall. Patient with poor mobility at baseline secondary to MS. He has history of recurrent falls. CT head and neck and CTA chest showed no fracture. Morbid obesity, BMI over 40. Patient reports he lost some weight with healthy lifestyle changes. He was offered praise and was encouraged to continue healthy lifestyle changes History of tobacco use. Patient smoked 2 packs a day for over 40 years and quit 10 years ago. He likely has underlying COPD but no formal diagnosis yet. We will give him DuoNebs. Physical deconditioning/generalized weakness. Improving. Continue PT and OT HLD, stable GERD, stable Cholelithiasis. Incidental finding on CT scan. No Brenda cystitis DVT prophylaxis. With SCDs Full code Total time taken 45 minutes Discharge diagnosis: CHF, respiratory failure, exacerbation of multiple sclerosis Time Spent with Patient Time attestation: Total time spent providing and/or coordinating discharge services: Time spent: Greater than 30 minutes EXAM Constitutional Vitals: Temp Pulse Resp BP Pulse Ox O2 Del Method O2 Flow Rate 97.7 F 81 20 115/82 94 Room Air 3 04/08/23 07:39 04/08/23 09:00 04/08/23 09:00 04/08/23 07:39 04/08/23 09:00 04/08/23 09:00 04/06/23 08:34 Discharge Data Data Completed and Pending Labs on day of discharge: Labs from last 24 hours 04/08/23 04/08/23 04/08/23 05:55 05:55 05:55 WBC 6.9 RBC 5.05 Hgb 14.4 Hct 42.8 MCV 84.8 MCH 28.5 MCHC 33.6 RDW 14.1 Plt Count 151 MPV 10.5 Immature Gran % (Auto) 0.1 Neut % (Auto) 73.0 Lymph % (Auto) 15.0 L [place] % (Auto) 8.6 Eos % (Auto) 2.3 Baso % (Auto) 1.0 Lymph # (Auto) 1.04 L [place] # (Auto) 0.60 Eos # (Auto) 0.16 Baso # (Auto) 0.07 Immature Gran # 0.01 Absolute Neutrophils 5.06 Sodium 136 Potassium 4.0 Chloride 100 Carbon Dioxide 25 Anion Gap 11.0 BUN 18 Creatinine 1.0 GFR Calculation 78 Glucose 109 H Calcium 8.8 Total Bilirubin 0.8 AST 41 H ALT 29 Alkaline Phosphatase 63 NT-Pro-B Natriuret Pep 71.9 Total Protein 6.8 Albumin 3.7 Globulin 3.1 Albumin/Globulin Ratio 1.2 Preliminary micro results at discharge 04/06/23 08:22 Blood Culture - Preliminary Blood 04/06/23 08:15 Blood Culture - Preliminary Blood Discharge Plan Patient/Caregiver Discharge Instructions Activity: ambulate only with your walker Instructions: Heart Failure (GEN), Acute Respiratory Failure (GEN) Activity Restrictions/Additional Instructions: Resume home diet as tolerated. Take all medications as drected Increase activity as tolerated. Continue fall precautions. Use a walker to reduce the risk of falling Follow-up with Paulo Zurita. Please contact the office on Sunday to schedule an appointment. Continue aggressive bowel regimen to prevent constipation. Take all medication as directed. Your prescription is with your discharge paperwork. Return to ER for fever, chills, uncontrolled pain, inability to urinate or have a bowel movement, nausea and/or vomiting, swelling, redness, signs of infection, shortness of breath, chest pain, return of symptoms, or other acute symptom. This discharge packet is provided to you to help keep you informed about your care. We want to ensure you get everything you need when you go home. You will also be receiving a call from us in a few days to follow up with you and see how you are doing since your discharge. This gives us a chance to listen to any concerns you maybe experiencing since you were discharged or any additional needs you may have, as well as providing us feedback on your care experience. We strive to always provide excellent care and thank you for your feedback and for choosing [facility]. Prescriptions: New furosemide [Lasix] 20 mg tablet 20 mg PO QAM Qty: 60 0RF Continued (DME) Handicap Placard Qty: 1 0RF Rx Instructions: As directed naproxen sodium [Aleve] 220 mg tablet 220 mg PO BID PRN (Reason: Headache) teriflunomide 14 mg tablet 14 mg PO QDAY potassium chloride 10 mEq tablet extended release 10 meq PO QDAY Qty: 90 3RF Discontinued furosemide [Lasix] 20 mg tablet 20 mg PO QAM Qty: 90 3RF Other Ambulatory Orders: Basic Metabolic Panel (Routine) Timeframe: 1 Week Facility: [facility] - Location: Laboratory Ordered By: Micah Bosch OT Discharge Order (Routine) Location: None Selected Ordered By: Micah Bosch Physical Therapy at Discharge - General (Routine) Location: None Selected Ordered By: Micah Bosch Follow Up Plan Follow up with: Paulo Zurita PA-C [Primary Care Provider] - Patient Disposition: Home, Self-Care Rehab Potential: Fair Overall status at discharge: patient is progressing back to baseline Discharge Orders: Discharge Order (Routine); Ordered 04/08/23 Ordered By: Micah Bosch QUALITY VTE Deep Vein Thrombosis/Pulmonary Embolism Present on Admission: No
--- NOTE | 2023-04-09 08:01 | EKG ---
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 Measurements Intervals [place] Rate: 124 P: 155 SD: 147 QRS: 63 QRSD: 91 T: 18 QT: 314 QTc: 451 Interpretive Statements Ectopic atrial tachycardia ST depression, consider ischemia, diffuse lds Electronically Signed On 04-09-2023 8:00:50 PDT by Isaias Khan M.D. /[id number]
== END 2023-04-08 13:05 | disposition home or self-care (01) ==
LOC: ED 06:04 → MEDSUR 06:04
PROVIDERS: ADMIT Internal Medicine; ATTEND Internal Medicine

== ENCOUNTER 2023-06-22 04:17 | Inpatient (IN) ==
[2023-06-22] MEDS ORDERED: IOPAMIDOL 100 ML BOTTLE IV ONE (04:18)
[2023-06-22] MEDS ORDERED: FUROSEMIDE 40 MG/4 ML VIAL IV ONE (04:52)
[2023-06-22] MEDS ORDERED: LEVOFLOXACIN 750 MG/150 ML BAG IV ONE (04:52)
[2023-06-22] MEDS ORDERED: methylPREDNISolone SOD SUCC 125 MG/2 ML VIAL IV ONE (04:52)
[2023-06-22 05:19] LABS: POC Calcium, Ionized 0.94 (1.16-1.32); POC Creatinine 1.2 (0.6-1.2); POC Potassium 3.8 (3.3-5.1)
[2023-06-22 06:05] LABS: ALT/SGPT 35 U/L (<40); AST/SGOT 27 U/L (<40); Albumin 3.4 gm/dL (3.2-5.2); Alkaline Phosphatase 75 U/L (39-117); Blood Urea Nitrogen 18 mg/dL (8-23); Calcium 8.7 mg/dL (8.6-10.4); Carbon Dioxide 24 mmol/L (22-30); Chloride 104 mmol/L (96-108); Creatine Kinase 217 U/L (24-195); Globulin 3.5 gm/dL (2.2-3.7); Glomerular Filtration Rate 70; Glucose 126 mg/dL (70-105); proBNP 33.7 pg/mL (<125.0)
[2023-06-22 06:21] LABS: Basophils # (Auto) 0.03 K/mcL (0.00-0.30); Basophils % (Auto) 0.6 % (0.0-2.0); Eosinophils # (Auto) 0.02 K/mcL (0.00-0.70); Eosinophils % (Auto) 0.4 % (0.0-7.0); Hemoglobin 14.9 g/dL (13.7-17.5); Lymphocytes # (Auto) 0.58 K/mcL (1.50-4.80); Lymphocytes % (Auto) 11.7 % (15.5-49.0); Mean Cell Volume 84.1 fL (80.0-100.0); Mean Corpuscular HGB Conc 33.9 g/dL (31.0-36.0); Mean Platelet Volume 10.7 fL (8.8-12.5); Monocytes # (Auto) 0.38 K/mcL (0.10-0.90); Monocytes % (Auto) 7.7 % (1.0-12.0); Neutrophils % (Auto) 79.4 % (38.0-78.0); Platelet Count 99 K/mcL (140-440); RBC 5.23 M/mcL (4.63-6.08); Red Cell Distribution Width 13.2 % (11.5-14.5); WBC 4.9 K/mcL (4.5-11.0)
[2023-06-22] MEDS ORDERED: PIPERACILLIN SODIUM/TAZOBACTAM 3.375 GM in DEXTROSE 5% IN WATER 50 ML IV ONE (09:07)
[2023-06-22] MEDS ORDERED: ONDANSETRON 4 MG ODT TABLET SL PRN (11:03)
[2023-06-22] MEDS ORDERED: VANCOMYCIN PER PHARMACY IV SCH (11:30)
[2023-06-22 12:31] LABS: Estimated Average Glucose(eAG) 105 mg/dL; Hemoglobin A1C 5.3 % Hgb (4.0-6.0)
[2023-06-22 12:35] LABS: Lactate Dehydrogenase 262 U/L (135-225); Phosphorous 2.6 mg/dL (2.5-4.5)
[2023-06-22] MEDS ORDERED: PIPERACILLIN SODIUM/TAZOBACTAM 3.375 GM in DEXTROSE 5% IN WATER 50 ML IV SCH (13:00)
[2023-06-22] MEDS: VANCOMYCIN 1,500 MG in 0.9 % SODIUM CHLORIDE 500 ML IV SCH ×2 (13:14→23:21)
[2023-06-22] MEDS: IPRATROPIUM/ALBUTEROL 3 ML AMPUL.NEB NEB SCH ×2 (14:19→18:59)
[2023-06-22] MEDS ORDERED: IPRATROPIUM/ALBUTEROL 3 ML AMPUL.NEB NEB SCH (15:00)
[2023-06-22] MEDS: guaiFENesin 100 MG/5 ML SYRUP PO SCH ×2 (16:00→20:36)
[2023-06-22] MEDS: PIPERACILLIN SODIUM/TAZOBACTAM 3.375 GM in DEXTROSE 5% IN WATER 50 ML IV SCH ×2 (16:00→18:52)
[2023-06-22] MEDS: 0.9 % SODIUM CHLORIDE 10 ML SYRINGE IV SCH ×2 (16:00→23:21)
[2023-06-22] MEDS: DOCUSATE SODIUM 100 MG CAPSULE PO SCH (20:36)
[2023-06-22] MEDS: SENNOSIDES 1 TABLET PO SCH (20:36)
[2023-06-22] MEDS: FAMOTIDINE 20 MG TABLET PO SCH (20:36)
[2023-06-23] MEDS: IPRATROPIUM/ALBUTEROL 3 ML AMPUL.NEB NEB SCH ×4 (01:38→19:09)
[2023-06-23] MEDS: PIPERACILLIN SODIUM/TAZOBACTAM 3.375 GM in DEXTROSE 5% IN WATER 50 ML IV SCH ×4 (01:41→20:15)
[2023-06-23] MEDS: 0.9 % SODIUM CHLORIDE 10 ML SYRINGE IV SCH ×3 (05:56→20:16)
[2023-06-23] MEDS: ENOXAPARIN 40 MG/0.4 ML SYRINGE SQ SCH (10:16)
[2023-06-23] MEDS: FAMOTIDINE 20 MG TABLET PO SCH ×2 (10:16→20:16)
[2023-06-23] MEDS: DOCUSATE SODIUM 100 MG CAPSULE PO SCH ×2 (10:16→20:04)
[2023-06-23] MEDS: guaiFENesin 100 MG/5 ML SYRUP PO SCH ×3 (10:16→20:16)
[2023-06-23] MEDS: ASPIRIN 81 MG TAB.CHEW CHEWED SCH (10:16)
[2023-06-23] MEDS: Budesonide-Glycopyr-Formoterol [Breztri] INH SCH ×2 (10:17→20:15)
[2023-06-23] MEDS: VANCOMYCIN 1,500 MG in 0.9 % SODIUM CHLORIDE 500 ML IV SCH (15:06)
[2023-06-23] MEDS: ONDANSETRON 4 MG/2 ML VIAL IV PRN (17:07)
[2023-06-23] MEDS: ACETAMINOPHEN 325 MG TABLET PO PRN (17:25)
[2023-06-23] MEDS: SENNOSIDES 1 TABLET PO SCH (20:05)
[2023-06-24] MEDS: PIPERACILLIN SODIUM/TAZOBACTAM 3.375 GM in DEXTROSE 5% IN WATER 50 ML IV SCH ×4 (00:06→20:11)
[2023-06-24] MEDS: VANCOMYCIN 1,500 MG in 0.9 % SODIUM CHLORIDE 500 ML IV SCH (00:35)
[2023-06-24] MEDS: IPRATROPIUM/ALBUTEROL 3 ML AMPUL.NEB NEB SCH ×4 (01:13→19:16)
[2023-06-24] MEDS: ACETAMINOPHEN 325 MG TABLET PO PRN ×2 (04:10→12:57)
[2023-06-24 07:36] LABS: ALT/SGPT 34 U/L (<40); AST/SGOT 25 U/L (<40); Albumin 3.3 gm/dL (3.2-5.2); Albumin/Globulin Ratio 1.1 (1.0-2.3); Alkaline Phosphatase 60 U/L (39-117); Bilirubin,Total 0.5 mg/dL (0.1-1.0); Blood Urea Nitrogen 25 mg/dL (8-23); Calcium 8.5 mg/dL (8.6-10.4); Carbon Dioxide 26 mmol/L (22-30); Chloride 101 mmol/L (96-108); Globulin 3.1 gm/dL (2.2-3.7); Glomerular Filtration Rate 89; Glucose 92 mg/dL (70-105)
[2023-06-24 08:22] LABS: Hemoglobin 13.9 g/dL (13.7-17.5); Mean Cell Volume 83.7 fL (80.0-100.0); Mean Corpuscular HGB Conc 33.9 g/dL (31.0-36.0); Mean Platelet Volume 10.2 fL (8.8-12.5); Platelet Count 126 K/mcL (140-440); Red Cell Distribution Width 13.3 % (11.5-14.5); WBC 4.8 K/mcL (4.5-11.0)
[2023-06-24] MEDS: FUROSEMIDE 20 MG TABLET PO SCH (09:03)
[2023-06-24] MEDS: DOCUSATE SODIUM 100 MG CAPSULE PO SCH ×2 (09:03→20:05)
[2023-06-24] MEDS: 0.9 % SODIUM CHLORIDE 10 ML SYRINGE IV SCH ×3 (09:03→20:11)
[2023-06-24] MEDS: ENOXAPARIN 40 MG/0.4 ML SYRINGE SQ SCH (09:03)
[2023-06-24] MEDS: FAMOTIDINE 20 MG TABLET PO SCH ×2 (09:03→20:11)
[2023-06-24] MEDS: ASPIRIN 81 MG TAB.CHEW CHEWED SCH (09:03)
[2023-06-24] MEDS: POTASSIUM CHLORIDE 10 MEQ TABLET PO SCH (09:03)
[2023-06-24 09:04] LABS: Band Neutrophils % 6 % (0-10); Eosinophils % (Manual) 1 % (0-7); Lymphocytes % 12 % (15-49); Monocytes % (Manual) 3 % (1-12); Platelet Estimate DECREASED (Normal); RBC Morphology NORMAL (Normal); Reactive Lymphocytes 1 % (0-2); Segmented Neutrophils % 77 % (38-78)
[2023-06-24] MEDS: Budesonide-Glycopyr-Formoterol [Breztri] INH SCH ×2 (09:33→20:05)
[2023-06-24] MEDS: guaiFENesin 100 MG/5 ML SYRUP PO SCH ×3 (11:04→20:12)
[2023-06-24] MEDS: ONDANSETRON 4 MG/2 ML VIAL IV PRN (12:58)
[2023-06-24] MEDS ORDERED: CALCIUM CARBONATE 500 MG TAB.CHEW CHEWED PRN (13:24)
[2023-06-24] MEDS: SENNOSIDES 1 TABLET PO SCH (20:06)
[2023-06-25] MEDS: IPRATROPIUM/ALBUTEROL 3 ML AMPUL.NEB NEB SCH ×3 (01:12→13:35)
[2023-06-25] MEDS: PIPERACILLIN SODIUM/TAZOBACTAM 3.375 GM in DEXTROSE 5% IN WATER 50 ML IV SCH ×3 (01:23→16:58)
[2023-06-25 06:53] LABS: Hemoglobin 13.4 g/dL (13.7-17.5); Mean Cell Volume 84.2 fL (80.0-100.0); Mean Corpuscular HGB Conc 33.5 g/dL (31.0-36.0); Mean Platelet Volume 10.1 fL (8.8-12.5); Platelet Count 126 K/mcL (140-440); RBC 4.75 M/mcL (4.63-6.08); Red Cell Distribution Width 13.3 % (11.5-14.5); WBC 3.4 K/mcL (4.5-11.0)
[2023-06-25 07:35] LABS: ALT/SGPT 30 U/L (<40); AST/SGOT 20 U/L (<40); Albumin/Globulin Ratio 0.9 (1.0-2.3); Alkaline Phosphatase 57 U/L (39-117); Bilirubin,Total 0.5 mg/dL (0.1-1.0); Blood Urea Nitrogen 15 mg/dL (8-23); Calcium 8.4 mg/dL (8.6-10.4); Carbon Dioxide 30 mmol/L (22-30); Chloride 103 mmol/L (96-108); Globulin 3.3 gm/dL (2.2-3.7); Glomerular Filtration Rate 78; Glucose 91 mg/dL (70-105)
[2023-06-25] MEDS: guaiFENesin 100 MG/5 ML SYRUP PO SCH (07:43)
[2023-06-25] MEDS: 0.9 % SODIUM CHLORIDE 10 ML SYRINGE IV SCH (07:43)
[2023-06-25 08:13] LABS: Band Neutrophils % 3 % (0-10); Eosinophils % (Manual) 6 % (0-7); Lymphocytes % 20 % (15-49); Monocytes % (Manual) 7 % (1-12); Platelet Estimate DECREASED (Normal); RBC Morphology NORMAL (Normal); Segmented Neutrophils % 64 % (38-78)
[2023-06-25] MEDS: POTASSIUM CHLORIDE 10 MEQ TABLET PO SCH (08:22)
[2023-06-25] MEDS: FUROSEMIDE 20 MG TABLET PO SCH (08:22)
[2023-06-25] MEDS: ASPIRIN 81 MG TAB.CHEW CHEWED SCH (08:22)
[2023-06-25] MEDS: FAMOTIDINE 20 MG TABLET PO SCH (08:22)
[2023-06-25] MEDS: DOCUSATE SODIUM 100 MG CAPSULE PO SCH (08:22)
[2023-06-25] MEDS: ENOXAPARIN 40 MG/0.4 ML SYRINGE SQ SCH (08:23)
[2023-06-25] MEDS: Budesonide-Glycopyr-Formoterol [Breztri] INH SCH (11:32)
== END 2023-06-25 14:06 | disposition home health service (06) | DRG 193 ==
LOC: ED 04:17 → MEDSUR 10:45
PROVIDERS: ADMIT Internal Medicine Critical Care Medicine; ATTEND Internal Medicine Critical Care Medicine

== ENCOUNTER 2023-09-29 16:46 | Inpatient (IN) ==
[2023-09-29 17:37] LABS: POC Calcium, Ionized 1.02 (1.16-1.32); POC Creatinine 1.5 (0.6-1.2); POC Potassium 4.1 (3.3-5.1)
[2023-09-29] MEDS ORDERED: 0.9 % SODIUM CHLORIDE 1,000 ML IV ONE ×2 (17:39→19:25)
[2023-09-29] MEDS ORDERED: ACETAMINOPHEN 1,000 MG/100 ML BAG IV ONE (18:00)
[2023-09-29 18:42] LABS: Basophils # (Auto) 0.11 K/mcL (0.00-0.30); Eosinophils # (Auto) 0.11 K/mcL (0.00-0.70); Hematocrit 38.5 % (40.1-51.0); Hemoglobin 12.9 g/dL (13.7-17.5); Lymphocytes # (Auto) 0.77 K/mcL (1.50-4.80); Lymphocytes % (Auto) 6.9 % (15.5-49.0); Mean Cell Volume 84.2 fL (80.0-100.0); Mean Corpuscular HGB Conc 33.5 g/dL (31.0-36.0); Mean Platelet Volume 9.4 fL (8.8-12.5); Monocytes # (Auto) 0.68 K/mcL (0.10-0.90); Monocytes % (Auto) 6.1 % (1.0-12.0); Neutrophils % (Auto) 84.7 % (38.0-78.0); Platelet Count 239 K/mcL (140-440); RBC 4.57 M/mcL (4.63-6.08); Red Cell Distribution Width 13.5 % (11.5-14.5); WBC 11.2 K/mcL (4.5-11.0)
[2023-09-29] MEDS ORDERED: VANCOMYCIN 1,500 MG in 0.9 % SODIUM CHLORIDE 500 ML IV ONE (18:55)
[2023-09-29] MEDS ORDERED: CEFEPIME 2 GM VIAL IV ONE (18:55)
[2023-09-29 18:58] LABS: INR 1.4 (0.9-1.1)
[2023-09-29 19:00] LABS: Appearance,Urine HAZY (Clear); Bacteria,Urine FEW /hpf (0); Bilirubin,Urine Negative (Negative); Color,Urine YELLOW; Culture Indicated,Urine Yes; Glucose,Urine (UA) Negative (Negative); Ketones,Urine Negative (Negative); Leukocyte Esterase,Urine 75 /uL (Negative); Mucus,Urine FEW /hpf; Nitrate,Urine Negative (Negative); Protein,Urine Negative (Negative); Specific Gravity,Urine 1.014 (1.000-1.035); Urine Blood Negative (Negative); Urine Hyaline Cast 7 /lph (0-2); Urine RBC 2 /hpf (0-3); Urine Squamous Epithelial Cell 0 /hpf (0-4); Urine WBC 13 /hpf (0-4); Urobilinogen,Urine Negative
[2023-09-29 19:01] LABS: ALT/SGPT 49 U/L (<40); AST/SGOT 22 U/L (<40); Albumin 3.4 gm/dL (3.2-5.2); Alkaline Phosphatase 101 U/L (39-117); Bilirubin,Direct 0.2 mg/dL (<0.3); Bilirubin,Total 0.6 mg/dL (0.1-1.0); Globulin 3.4 gm/dL (2.2-3.7)
[2023-09-29] MEDS ORDERED: IPRATROPIUM/ALBUTEROL 3 ML AMPUL.NEB NEB PRN (21:26)
[2023-09-29] MEDS ORDERED: POTASSIUM CHLORIDE 40 MEQ in DEXTROSE 5% IN WATER 500 ML IV PRN (21:26)
[2023-09-29] MEDS ORDERED: SENNOSIDES 1 TABLET PO PRN (21:26)
[2023-09-29] MEDS ORDERED: POTASSIUM CHLORIDE 20 MEQ TABLET PO PRN ×2 (21:26)
[2023-09-29] MEDS ORDERED: POLYETHYLENE GLYCOL 3350 17 GM PACKET PO PRN (21:26)
[2023-09-29] MEDS ORDERED: MAGNESIUM SULFATE 2 GM/50 ML BAG IV PRN (21:26)
[2023-09-29] MEDS ORDERED: ONDANSETRON 4 MG/2 ML VIAL IV PRN (21:26)
[2023-09-29] MEDS ORDERED: MELATONIN 3 MG TABLET PO PRN (23:29)
[2023-09-29] MEDS: DOCUSATE SODIUM 100 MG CAPSULE PO SCH (23:32)
[2023-09-29] MEDS ORDERED: MELATONIN 3 MG TABLET PO ONE (23:33)
[2023-09-29] MEDS: APIXABAN 5 MG TABLET PO SCH (23:44)
[2023-09-30] MEDS ORDERED: APIXABAN 2.5 MG TABLET PO ONE ×2 (00:13→00:16)
[2023-09-30] MEDS: APIXABAN 5 MG TABLET PO SCH ×4 (00:17→21:43)
[2023-09-30 06:15] LABS: Basophils # (Auto) 0.09 K/mcL (0.00-0.30); Eosinophils # (Auto) 0.06 K/mcL (0.00-0.70); Eosinophils % (Auto) 0.7 % (0.0-7.0); Hematocrit 35.7 % (40.1-51.0); Hemoglobin 11.6 g/dL (13.7-17.5); Lymphocytes # (Auto) 1.34 K/mcL (1.50-4.80); Lymphocytes % (Auto) 14.5 % (15.5-49.0); Mean Cell Volume 85.8 fL (80.0-100.0); Mean Corpuscular HGB Conc 32.5 g/dL (31.0-36.0); Mean Platelet Volume 9.6 fL (8.8-12.5); Monocytes # (Auto) 0.71 K/mcL (0.10-0.90); Monocytes % (Auto) 7.7 % (1.0-12.0); Neutrophils % (Auto) 75.7 % (38.0-78.0); Platelet Count 197 K/mcL (140-440); RBC 4.16 M/mcL (4.63-6.08); Red Cell Distribution Width 13.7 % (11.5-14.5); WBC 9.2 K/mcL (4.5-11.0)
[2023-09-30 06:53] LABS: ALT/SGPT 41 U/L (<40); AST/SGOT 21 U/L (<40); Alkaline Phosphatase 96 U/L (39-117); Bilirubin,Direct 0.3 mg/dL (<0.3); Bilirubin,Total 0.9 mg/dL (0.1-1.0); Blood Urea Nitrogen 15 mg/dL (8-23); Calcium 8.5 mg/dL (8.6-10.4); Carbon Dioxide 23 mmol/L (22-30); Chloride 102 mmol/L (96-108); Globulin 3.1 gm/dL (2.2-3.7); Glomerular Filtration Rate 70; Glucose 115 mg/dL (70-105); Lactate Dehydrogenase 306 U/L (135-225); Phosphorous 2.3 mg/dL (2.5-4.5); Triglycerides 81 mg/dL (<150); Uric Acid 5.1 mg/dL (2.5-8.0)
[2023-09-30] MEDS: LACTOBACILLUS 1 CAPSULE PO SCH ×2 (08:27→21:43)
[2023-09-30] MEDS: amLODIPine 5 MG TABLET PO SCH (08:28)
[2023-09-30] MEDS: DOCUSATE SODIUM 100 MG CAPSULE PO SCH ×2 (08:29→21:43)
[2023-09-30] MEDS: CEFEPIME 2 GM VIAL IV SCH ×2 (08:40→21:42)
[2023-09-30] MEDS ORDERED: APIXABAN 5 MG TABLET PO ONE (08:57)
[2023-09-30] MEDS ORDERED: MICONAZOLE NITRATE 2% TOPICAL SCH (09:00)
[2023-09-30] MEDS ORDERED: Teriflunomide 14 mg tablet PO SCH (09:00)
[2023-09-30] MEDS ORDERED: diphenhydrAMINE 25 MG CAPSULE PO SCH (21:00)
[2023-09-30] MEDS ORDERED: MELATONIN 3 MG PO SCH (21:00)
[2023-09-30] MEDS ORDERED: MELATONIN 3 MG TABLET PO PRN (21:00)
[2023-09-30] MEDS: NYSTATIN CRM 1 DOSE TUBE TOPICAL SCH (21:43)
[2023-10-01] MEDS: amLODIPine 5 MG TABLET PO SCH (09:02)
[2023-10-01] MEDS: LACTOBACILLUS 1 CAPSULE PO SCH (09:03)
[2023-10-01] MEDS: APIXABAN 5 MG TABLET PO SCH (09:04)
[2023-10-01] MEDS: DOCUSATE SODIUM 100 MG CAPSULE PO SCH (09:04)
[2023-10-01 10:05] LABS: ALT/SGPT 35 U/L (<40); AST/SGOT 24 U/L (<40); Albumin 2.9 gm/dL (3.2-5.2); Albumin/Globulin Ratio 0.8 (1.0-2.3); Alkaline Phosphatase 89 U/L (39-117); Bilirubin,Direct < 0.2 mg/dL (0-0.3); Bilirubin,Total 0.6 mg/dL (0.1-1.0); Blood Urea Nitrogen 11 mg/dL (8-23); Calcium 8.5 mg/dL (8.6-10.4); Carbon Dioxide 24 mmol/L (22-30); Chloride 101 mmol/L (96-108); Globulin 3.6 gm/dL (2.2-3.7); Glomerular Filtration Rate 70; Glucose 123 mg/dL (70-105); Lactate Dehydrogenase 351 U/L (135-225); Phosphorous 2.4 mg/dL (2.5-4.5); Triglycerides 107 mg/dL (<150); Uric Acid 3.9 mg/dL (2.5-8.0)
[2023-10-01] MEDS: CEFEPIME 2 GM VIAL IV SCH (11:38)
[2023-10-01] MEDS: NYSTATIN CRM 1 DOSE TUBE TOPICAL SCH (14:22)
== END 2023-10-01 15:30 | disposition home or self-care (01) | DRG 872 ==
LOC: ED 16:46 → MEDSUR 21:25
PROVIDERS: ADMIT Internal Medicine; ATTEND Internal Medicine